=== PATIENT | female | born 1955 | race Caucasian/White ===

== ENCOUNTER 2020-10-21 09:44 | Day surgery (SDC) | payer BC, SELFPAY ==
[2020-10-21] VITALS (11 sets, daily range): BP systolic 105–138; BP diastolic 59–88
[~2020-10-21] VITALS: Ht 162.6 cm; Wt 63.5 kg
== END 2020-10-21 16:00 | disposition home or self-care (01) ==
LOC: OR 09:44 → DS 09:44 → OR 10:30 → DS 16:00
PROVIDERS: ATTEND Internal Medicine Geriatric Medicine
DX: I25.10 Atherosclerotic heart disease of native coronary artery without angina pectoris (principal); R07.9 Chest pain, unspecified
CPT/HCPCS: CLHCL; J1644; J2001; J2250; J3010; J3490; Q9967